=== PATIENT | female | born 1995 | race Two or more races ===

== ENCOUNTER 2024-08-07 04:46 | Inpatient (IN) | payer MEDICAID, SELFPAY ==
[2024-08-07] VITALS (15 sets, daily range): BP systolic 88–136; BP diastolic 63–83; PULSE 68–87; RESP 14–20; TEMP 36.7–37.1; O2SAT 96–100; BMI 26.9
[2024-08-07 05:15] LABS: ROM Kit Lot # 57845053; ROM Swab Mixed By: DELEN1; Rupture of Fetal Membranes Positive (Negative); Swb Mxed in Solvent 1 min? Yes
[2024-08-07 05:49] LABS: Basophils % (Auto) 0 % (0-2.5); Eosinophils # (Auto) 0.1 Thou/mm3 (0.0-0.5); Eosinophils % (Auto) 1 % (0-10); Hematocrit 35.4 % (36.0-46.0); Hemoglobin 12.3 g/dL (12.0-16.0); Immature Granulocytes % (Auto) 1 % (0-0); Immature Granulocytes Auto 0.09 Thou/mm3 (0.00-0.00); Lymphocytes # (Auto) 3.3 Thou/mm3 (1.0-4.8); Lymphocytes % (Auto) 34 % (10-50); Mean Corpuscular HGB Conc 34.7 g/dl (31.0-37.0); Mean Corpuscular Hemoglobin 30.8 pg (25.0-35.0); Mean Corpuscular Volume 89 fL (80-100); Monocytes # (Auto) 0.8 Thou/mm3 (0.0-0.8); Monocytes % (Auto) 9 % (0-12); Neutrophils # (Auto) 5.4 Thou/mm3 (1.8-7.7); Neutrophils % (Auto) 56 % (37-80); Nucleated Red Blood Cell % 0 /100 WBC (0); Platelet Count 205 Thou/mm3 (140-440); RDW Standard Deviation 42.6 fL (36.4-46.3); Red Blood Count 3.99 Miln/mm3 (4.00-5.20); White Blood Count 9.7 Thou/mm3 (3.6-11.0)
[2024-08-07] MEDS: ceFAZolin/D5W 2 GM IV 2 GM/100 ML BAG IV (06:05)
[2024-08-07] MEDS: FAMOTIDINE INJ 10 MG/ML VIAL 2 ML 20 MG IV (06:05)
[2024-08-07] MEDS: CITRIC ACID/SODIUM CITR 15 ML UDC (BICITRA) 30 ML PO (06:06)
--- NOTE | 2024-08-07 06:13 | PD.LDHP ---
Documentation for date of: 08/07/24 OB Labor/Induct. HPI History of Present Illness History of sections: Yes (X1) History of present illness: Dictated in Nuance [id number] History of Present Adequate Care: Yes Past Medical History Surgical History SURGICAL: Positive Section (X1) Meds Home Medications and Allergies Home Medications ?Medication ?Instructions ?Recorded ?Confirmed ?Type acetaminophen 500 mg capsule 1,000 mg PO Q6H PRN Pain 02/08/23 02/08/23 History Allergies Allergy/AdvReac Type Severity Reaction Status Date / Time No Known Allergies Allergy Unknown Verified 02/09/23 09:37 OB Exam Physical Exam Vital signs: Pulse BP 78 136/82 H 08/07/24 06:02 08/07/24 06:02 OB Results Labs 08/07/24 05:32 Labs: Short CBC 08/07/24 Range/Units 05:32 WBC 9.7 (3.6-11.0) Thou/mm3 Hgb 12.3 (12.0-16.0) g/dL Hct 35.4 L (36.0-46.0) % Plt Count 205 (140-440) Thou/mm3
[2024-08-07 06:30] LABS: Syphilis Nonreactive (Nonreactive)
--- NOTE | 2024-08-07 07:07 | ESHP_ITS ---
RE: JUAN CHEN : 1995 DATE OF ADMISSION: 08/07/2024 HISTORY OF PRESENT ILLNESS: This is a 29-year-old 2 para 1 with intrauterine at 36 weeks' gestation, previous delivery who elects repeat delivery who presented to labor and delivery complaining of contractions and leaking is noted to be lata every 1-2 minutes with amniosure positive. She denies any leaking or bleeding. She reports normal movements. Her GBS was negative. MEDICATIONS: multivitamin 1 tablet p.o. daily. PAST MEDICAL HISTORY: Endometriosis and pelvic adhesions. PAST SURGICAL HISTORY: delivery, laparoscopic bilateral ovarian cystectomy and lysis of adhesions in 10/2021, and diagnostic laparoscopy on 02/09/2023. SOCIAL HISTORY: She denies any alcohol, drug use, or smoking. She is . FAMILY HISTORY: Diabetes. REVIEW OF SYSTEMS: She denies any chest pain, palpitations, cough, fever, shortness of breath, or lower extremity pain. She denies any headache, change in vision or right upper quadrant pain. PHYSICAL EXAMINATION: VITAL SIGNS: Blood pressure is 136/82 mmHg, heart rate 78, respirations 18, and temperature 98.2. HEENT: Oropharynx and sclerae are clear. LUNGS: Clear to auscultation bilaterally. HEART: Regular rate and rhythm. ABDOMEN: Gravid, term size, old Pfannenstiel scar noted. PELVIC: Per RN is fingertip, long vertex. EXTREMITIES: Nontender. SKIN: No gross or lesion. NEUROLOGIC: No focal deficit. ASSESSMENT: Intrauterine at 36 weeks 5 days, previous delivery, labor, elect repeat delivery. PLAN: Repeat delivery. Informed consent was obtained. The patient was made aware of the risks, complications, alternatives, and benefits of the proposed procedure and she agrees. DT: 06:12:42 TT: 07:05:00 Ref: [id number] - TID: [id number] MTDD
--- NOTE | 2024-08-07 07:45 | PD.LDDS ---
DS: Providers Provider Date of admission: 08/07/24 06:51 Primary care physician: Jareth Knight MD Admitting Provider: Jareth Knight MD Attending Provider on Admission: Jareth Knight MD Consults: 08/07/24 07:25 Referral Routine Comment: Attending Provider on DC: Jareth Knight MD Discharging Provider: Jareth Knight MD DS: Diagnosis Problem List Completed Was Problem List Reviewed/Reconciled?: Yes Summary/Hosp Course Brief History: Dictated in [facility] [id number] Peripartum Data Procedures: Procedures Operation Date: 08/07/24 06:30 <No data on this case meets the specified criteria> Time Spent with Patient Time attestation: Total time spent providing and/or coordinating discharge services: Exam Vital Signs Pulse BP 78 136/82 H 08/07/24 06:02 08/07/24 06:02 Discharge Plan Plan Patient Disposition: HOME (Self Care) Patient condition on transfer: Stable Prescriptions/Referrals Prescriptions/Med Rec: New hydrocodone-acetaminophen 5-325 mg tablet 1 tab PO Q6H MDD 4 PRN (Reason: pain) Qty: 20 0RF No Action M- Plus 27 mg iron- 1 mg tablet 1 tab PO QDAY Patient Comments: TAKE 1 TABLET BY MOUTH EVERY DAY Referrals: Jareth Knight MD [Primary Care Provider] - Patient/Caregiver Discharge Instructions Discharge Activity: activity as tolerated Other Discharge Activity Instructions:: Follow up office 1 week. Education Materials: C Section Dc Print Language: Nigerien Stand Alone Forms: Bonita Award Info., Patient Portal Info Letter Planned Discharge Date 08/09/24
[2024-08-07] MEDS: OXYTOCIN in NS 20 units 20 UNIT/1,000 ML BAG 125 UNIT IV ×2 (07:50→14:24)
[2024-08-07] MEDS: KETOROLAC INJ 30 MG/ML VIAL IVP ×2 (10:29→17:19)
[2024-08-07 13:37] LABS: Basophils # (Auto) 0.1 Thou/mm3 (0.0-0.2); Basophils % (Auto) 0 % (0-2.5); Eosinophils % (Auto) 0 % (0-10); Hematocrit 27.8 % (36.0-46.0); Hemoglobin 9.7 g/dL (12.0-16.0); Immature Granulocytes % (Auto) 1 % (0-0); Lymphocytes # (Auto) 2.3 Thou/mm3 (1.0-4.8); Lymphocytes % (Auto) 15 % (10-50); Mean Corpuscular HGB Conc 34.9 g/dl (31.0-37.0); Mean Corpuscular Hemoglobin 31.8 pg (25.0-35.0); Mean Corpuscular Volume 91 fL (80-100); Monocytes # (Auto) 0.8 Thou/mm3 (0.0-0.8); Monocytes % (Auto) 5 % (0-12); Neutrophils # (Auto) 12.1 Thou/mm3 (1.8-7.7); Neutrophils % (Auto) 79 % (37-80); Nucleated Red Blood Cell % 0 /100 WBC (0); Platelet Count 164 Thou/mm3 (140-440); RDW Standard Deviation 43.5 fL (36.4-46.3); Red Blood Count 3.05 Miln/mm3 (4.00-5.20); White Blood Count 15.4 Thou/mm3 (3.6-11.0)
[2024-08-08 00:50] VITALS: BP 113/73; PULSE 86; RESP 17; TEMP 37.1; O2SAT 99
[2024-08-08] MEDS: IBUPROFEN TAB 400 MG TABLET 800 MG PO ×2 (00:55→16:11)
[2024-08-08 03:35] VITALS: BP 106/65; PULSE 71; RESP 16; TEMP 37.1; O2SAT 97
--- NOTE | 2024-08-08 07:28 | OBDSUM_ITS ---
Data ([facility]) Data Hx Section: Yes (X1) : 2 Para: 1 Term: 1 : 0 : 0 Delivery Data (Saunders) Labor Data ROM Date: 08/07/24 ROM Time: 04:30 Rupture Type: SROM Amniotic Fluid: Clear Delivery Data EDC: 08/30/24 EDC calculated by:: LMP/early US confirmation Labor Onset Stage 1 Date: 08/07/24 Labor Onset Stage 1 Time: 05:40 Labor Onset Stage 2 Date: 08/07/24 Labor Onset Stage 2 Time: 06:41 Delivery Date: 08/07/24 Delivery Time: 06:41 Gestational age (weeks): 36 Gestational age (days): 5 Placenta Delivery Date: 08/07/24 Placenta Delivery Time: 06:42 Delivered by: Jareth Knight Delivery nurse: Cierra Morales Other staff at delivery: Nursery Nurse Other staff at delivery: Historic Sites Registrar Other staff at delivery: Erendira Duff Other staff at delivery: Beverley Peoples Delivery Method Delivery: Delivery Type: Repeat Presentation: Vertex Position: OA Anesthesia Type Primary Anesthesia: Spinal Placenta Placenta Delivery: Manual Placenta Cultures Obtained: No Placenta Sent for Examination: No Cord Sample: Cord Blood Obtained EBL Estimated blood loss (ml): 600 Umbilical Cord Umbilical Vessels: 3 Additional Procedures Lysis of adhesions Complications Complications: None [place] Data (Saunders) [place] Data Gender: Male Infant Weight Grams: 2775 1 Minute Total: 8 5 Minute Total: 9
[2024-08-08] MEDS: HYDROcodone/APAP 5/325 TABLET 1 TAB PO (07:37)
[2024-08-08 08:00] VITALS: BP 102/64; PULSE 87; RESP 16; TEMP 37.2; O2SAT 97
--- NOTE | 2024-08-08 08:03 | ESPR_ITS ---
RE: JUAN CHEN : 1995 DATE OF SERVICE: 08/08/2024 SUBJECTIVE: Postoperative day #1, the patient denies any problem or complaint. She is voiding, ambulating, tolerating diet, passing flatus. She denies any excessive vaginal bleeding. She denies any dizziness or lightheadedness. She denies any chest pain, palpitations, shortness of breath, or lower extremity pain. OBJECTIVE: Vital Signs: Blood pressure 106/65, heart rate 71, respirations 16, temperature 98.8, pulse oximetry is 97% on room air. Lungs: Clear to auscultation bilaterally. Heart: Regular rate and rhythm. Abdomen: Dressing is dry and intact. Fundus is firm. Extremities: Nontender. LABORATORY DATA: Hemoglobin predelivery is 12.3, post delivery is 9.7. ASSESSMENT: Postop day #1 status post delivery and lysis of adhesions. PLAN: Remove dressing, discontinue IV, support, encourage ambulation, possible discharge home tomorrow. DT: 07:28:15 TT: 08:02:00 Ref: [id number] - TID: [id number]
[2024-08-08 17:04] VITALS: BP 107/70; PULSE 90; RESP 16; TEMP 37.1
[2024-08-08 20:49] VITALS: BP 119/74; PULSE 75; RESP 18; TEMP 36.9; O2SAT 98
[2024-08-08] MEDS: SIMETHICONE 80 MG CHEW PO (21:05)
[2024-08-08] MEDS: Milk Of Magnesia Susp 30 ML UDC PO (21:05)
[2024-08-09 00:17] VITALS: BP 106/65; PULSE 77; RESP 16; TEMP 36.9; O2SAT 96
[2024-08-09] MEDS: IBUPROFEN TAB 400 MG TABLET 800 MG PO ×2 (00:17→08:26)
--- NOTE | 2024-08-09 07:41 | ESPR_ITS ---
RE: JUAN CHEN : 1995 DATE OF SERVICE: 08/09/2024 Postop day number 2. The patient denies any permanent complaint. She would like something to help with the bowel movement. She is passing flatus. She is voiding without difficulty. She denies any dizziness or lightheadedness. She denies any chest pain, palpitations, shortness of breath or lower extremity pain. She denies any excessive vaginal bleeding or nausea or vomiting. She is tolerating a regular diet. OBJECTIVE: VITAL SIGNS: Blood pressure 106/65, heart rate 77, respirations 16, temperature is 98.4, pulse ox is 96% on room air. LUNGS: Clear to auscultation bilaterally. HEART: Regular rate and rhythm. ABDOMEN: Incision clear and intact. Fundus is firm. EXTREMITIES: Nontender. ASSESSMENT: Postoperative day number 2, status post delivery with lysis of adhesions. Anemia, but hemodynamically stable. PLAN: Discharge home. Follow up in the office in 1 week. Continue vitamin daily. Dulcolax suppository for bowel movement prior to discharge. DT: 06:53:33 TT: 07:39:00 Ref: [id number] - TID: [id number]
[2024-08-09 08:00] VITALS: BP 122/73; PULSE 94; RESP 16; TEMP 36.7; O2SAT 98
[2024-08-09] MEDS: bisacodyL 10 MG SUPP PR (08:30)
--- NOTE | 2024-08-09 08:34 | ESOP_ITS ---
RE: JUAN CHEN : 1995 DATE OF OPERATION: 08/07/2024 PREOPERATIVE DIAGNOSES: 1. Intrauterine at 36 weeks and 5 days. 2. Previous delivery. 3. Early labor. 4. Elects repeat delivery. 5. Spontaneous rupture of membranes. POSTOPERATIVE DIAGNOSES: 1. Intrauterine at 36 weeks and 5 days. 2. Previous delivery. 3. Early labor. 4. Elects repeat delivery. 5. Spontaneous rupture of membranes. 6. Endometriosis. PROCEDURES PERFORMED: Repeat low transverse section via Pfannenstiel skin incision and lysis of adhesions. SURGEON: Jareth Knight DO LOGGING RAFTER LABORER: KAREEN Rey ANESTHESIA: Spinal. ANESTHESIOLOGIST: Dionisio Orellana CRNA ESTIMATED BLOOD LOSS: 600 mL. COMPLICATIONS: None. COUNTS: Correct. PATHOLOGY: None. FINDINGS: A live male , cephalic presentation. Clear amniotic fluid. , see RN notes. Cord pH not done. Placenta removed completely intact. Uterus firm with Pitocin. Superficial endometriotic implants on the posterior uterosacral ligaments, adhesions of the right adnexa to the right posterior uterosacral ligament, endometriotic implants on the serosal surface of the rectosigmoid colon. There were no endometriomas or endometriotic masses or cysts. DESCRIPTION OF PROCEDURE: After proper informed consent was obtained and patient was made aware of the risks, complications, alternatives, and benefits of the proposed procedure, she was taken to the operating room where she underwent induction of spinal anesthesia. She was placed in the dorsal supine position with leftward tilt. She was prepped and draped in the usual sterile fashion. A timeout was performed. A Pfannenstiel skin incision was made with scalpel and carried through to the underlying layer of fascia with the Bovie. The fascia was nicked in the midline. The incision extended bilaterally with the Bovie. The inferior aspect of the fascia was grasped with Mat clamps and elevated. The underlying rectus muscle was dissected off with the Bovie. The rectus muscles were in the midline. The peritoneum identified between 2 Garza clamps and the peritoneum was entered sharply with Metzenbaum scissors. The incision was extended superiorly and inferiorly with good visualization of the bladder. The bladder blade was inserted. The vesicouterine peritoneum was incised transversely and bladder flap created digitally. The bladder blade was reinserted. The lower uterine segment was incised in transverse fashion with scalpel. The incision was extended bilaterally digitally. The infant's head delivered. Mouth and nose suctioned with bulb suction. Shoulder and body delivered atraumatically. The cord was clamped and cut. The infant was handed off to awaiting pediatric staff. Cord blood and gases were sent. The placenta was then removed manually. The uterus was exteriorized and cleared of all clots and debris. The uterine incision was repaired with #1-0 chromic catgut suture in running locking fashion. A second layer of same suture was used imbricating the first layer and obtained excellent hemostasis. The vesicouterine peritoneum was closed with 2-0 chromic catgut suture in running fashion. Attention was then turned to the posterior aspect of the uterus where the adhesions were lysed using Enseal X1 large jaw. Interceed was placed on the posterior uterosacral ligaments. The uterus was returned to the abdomen. The gutters were cleared of all clots and debris. The peritoneum was closed with 0 chromic catgut suture in running fashion. The muscle was closed with 0 chromic catgut suture in running fashion. The fascia was closed with 0 Vicryl beginning at each angle and ending at center in running fashion. Subcutaneous tissue was irrigated with normal saline solution and found to be hemostatic, closed with 2-0 chromic catgut suture in running fashion. The skin was closed with 4-0 Monocryl and Dermabond Prineo dressing was applied. A sterile pressure dressing was applied. She tolerated the procedure well. Counts were correct. I discussed with patient the nature of her condition, intraoperative findings and expectation for recovery. All questions answered. DT: 07:43:48 TT: 15:49:00 Ref: [id number] - TID: [id number]
== END 2024-08-09 12:30 | disposition home or self-care (01) | DRG 540 ==
LOC: S4SX 05:54 → S4NX 06:57 → S4SX 08-08 05:48 → S4NX 08-08 05:48 → S4SX 08-14 13:25 → S4NX 08-14 13:25
PROVIDERS: Admitting Provider Specialist; PCP Specialist; Visit Provider Specialist
PROC: 10D00Z1 Extraction of Products of Conception, Low, Open Approach (ICD-10-PCS; CPT 59514; principal; 2024-08-07 06:30)
DX: O60.14X0 Preterm labor third trimester with preterm delivery third trimester, not applicable or unspecified (principal); O34.211 Maternal care for low transverse scar from previous cesarean delivery; O34.83 Maternal care for other abnormalities of pelvic organs, third trimester; N80.00 Endometriosis of the uterus, unspecified; N80.5 Endometriosis of intestine; Z37.0 Single live birth; Z3A.36 36 weeks gestation of pregnancy
CPT/HCPCS: 36415; 59025; 59409; 59899; 84112; 85025; 86780; 86850; 86900; 86901; 94762; A4649; G0378; J0689; J1885; J2274; J2371; J2590; J3490; A9270; J0690; J2270

== ENCOUNTER 2025-08-05 12:21 | Emergency (ER) | payer MEDICAID, SELFPAY ==
[2025-08-05 12:34] VITALS: BP 102/65; PULSE 68; RESP 16; TEMP 36.6; O2SAT 99; BMI 23.3
--- NOTE | 2025-08-05 12:57 | XR_ITS ---
Examination: CT abdomen and pelvis without contrast. Coronal 3-D reconstructions. Sagittal 2-D reconstructions. Date and time of exam: August 05, 2025, 1450 hours INDICATIONS: Left flank pain left lower back pain beginning 1 month ago CTDI: vol (mGy): 6.76 DLP: (mGycm): 339 Technique: Axial images of the abdomen have been obtained, 3 mm slice thickness Intravenous contrast material has not been administered. Low dose protocols were performed. One or more of the following dose reduction techniques were used; automated exposure control, adjustment of the mA and/or KV according to patient size, use of iterative reconstruction technique. Findings: No focal liver or splenic lesions Contracted gallbladder No pancreatic or adrenal mass. No renal or ureteral calculi, no hydronephrosis Aorta normal size No pericecal inflammatory change, normal appendix No bowel obstruction or diverticulitis Hypodense cystlike area in the pelvis, axial image 168, measuring 5.3 cm Urinary bladder intact Moderate disc narrowing L5-S1 IMPRESSION: No renal or ureteral calculi, no hydronephrosis Normal appendix 5.3 cm hypodense area in the right pelvis, recommend pelvic sonography follow-up
--- NOTE | 2025-08-05 13:11 | EDNOTE_ITS ---
ED Back Injury Pain RME/HPI General Chief Complaint: Back Pain/Injury Stated Complaint: L) LOWER BACK PAIN, INTERMITTENT, X 1 MO Time Seen by Provider: 08/05/25 12:26 Source: patient Arrival date/time: 08/05/25 12:21 30-year-old female with no known medical history presents to the emergency room with a chief complaint of left-sided flank pain x 1 month Mode of arrival: ambulatory Limitations: no limitations Related Data Home Medications ?Medication ?Instructions ?Recorded ?Confirmed vitamins with calcium 1 tab PO QDAY 08/07/24 08/07/24 no.72-iron 27 mg-folic acid 1 mg tablet (M-Vania Plus) Previous Rx's ?Medication ?Instructions ?Recorded hydrocodone 5 mg-acetaminophen 325 1 tab PO Q6H PRN pa in #20 tabs 08/07/24 mg tablet ibuprofen 600 mg tablet 600 mg PO Q6H PRN pain #30 t abs 08/09/24 Allergies Allergy/AdvReac Type Severity Reaction Status Date / Time No Known Allergies Allergy Unknown Verified 08/07/24 07:13 Review of Systems Review of Systems Systems Reviewed: All systems reviewed, normal except as documented Constitutional Constitutional: Reports system reviewed and no additional complaints, except as documented, Denies fatigue, Denies fever(s), Denies headache(s) and Denies weakness Eyes Eyes: Reports system reviewed and no additional complaints, except as documented, Denies blurry vision and Denies change in vision ENT Ears, Nose, Mouth, and Throat: Reports system reviewed and no additional complaints, except as documented, Denies otalgia, Denies headache(s), Denies nasal congestion, Denies throat swelling and Denies vertigo Cardiovascular Cardiovascular: Reports system reviewed and no additional complaints, except as documented, Denies chest pain, Denies dyspnea and Denies dyspnea on exertion Respiratory Respiratory: Reports system reviewed and no additional complaints, except as documented, Denies chest congestion, Denies cough, Denies dyspnea, Denies dyspnea on exertion and Denies wheezing Gastrointestinal Gastrointestinal: Reports system reviewed and no additional complaints, except as documented, Denies abdominal pain, Denies cramping, Denies nausea and Denies vomiting Genitourinary Genitourinary: Reports system reviewed and no additional complaints, except as documented Musculoskeletal Musculoskeletal: Reports system reviewed and no additional complaints, except as documented and Reports back pain Integumentary/Breasts Skin/Breast: Reports system reviewed and no additional complaints, except as documented and Denies wounds Neurologic Neurologic: Reports system reviewed and no additional complaints, except as documented, Denies confusion, Denies headache(s), Denies lack of coordination, Denies vertigo and Denies weakness Psychiatric Psychiatric: Reports system reviewed and no additional complaints, except as documented, Denies anxiety, Denies confusion, Denies depression, Denies paranoia, Denies suicidal ideation and Denies tactile hallucinations Endocrine Endocrine: Reports system reviewed and no additional complaints, except as documented and Denies fatigue Hematologic/Lymphatic Hematologic/Lymphatic: Reports system reviewed and no additional complaints, except as documented and Denies lymphadenopathy Allergic/Immunologic Allergic/Immunologic: Reports system reviewed and no additional complaints, except as documented, Denies throat swelling, Denies urticaria and Denies wheezing Past Medical History Past Medical History NEUROLOGIC: Negative Neurological Disorders or Seizures CARDIAC: Negative Cardiac Disorders or Congestive Heart Failure RESPIRATORY: Negative Chronic Obstructive Pulmonary Disease (COPD), Asthma, Tuberculosis, Pulmonary Embolism or Sleep Apnea GASTROINTESTINAL: Negative Gastrointestinal Disorders or Hepatitis GENITOURINARY: Negative Genitourinary Disorders or Renal Disease REPRODUCTIVE: Positive Pelvic Inflammatory Disease (OVARIAN CYSTS) and Previous Pregnancies (X1) MUSCULOSKELETAL: Negative Musculoskeletal Disorders ENDOCRINE: Negative Endocrine Disorders, Diabetes Mellitus Type 1 or Diabetes Mellitus Type 2 HEMATOLOGIC: Negative Blood Disorders, Sickle Cell Disease or Clotting Problems OTHER HISTORY: Positive Chicken Pox (self); Negative Hospitalization, Autoimmune Disease, Shingles, Falls, Blood Transfusions, Blood Transfusion Reaction, Anesthesia Reactions, Radiation Therapy, MRSA, Measles, Mumps or Cancer Family History FAMILY HISTORY: Positive Family Respiratory Disorders (SISTER (ASTHMA)) and Family Cardiac Disorders (FATHER (HTN)); Negative Family Psychiatric Problems, Family Gastrointestinal Problems, Family Cancer, Family Surgery or Family Anesthesia Reaction Surgical History SURGICAL: Positive Section (X1); Negative Endocrine Surgery or Abdominal Surgery Social History SMOKING STATUS: Never smoker SECOND HAND EXPOSURE: No ED Exam General Limitations: Present no limitations General appearance: Present alert and in no apparent distress Head Head exam: Present atraumatic Eye Eye exam: Present normal appearance, PERRL and EOMI ENT ENT exam: Present normal exam, normal oropharynx and mucous membranes moist Neck Neck exam: Present normal inspection, full ROM and trachea midline Chest Chest inspection: Present normal inspection and symmetric chest wall rise Respiratory Respiratory exam: Present normal lung sounds bilaterally Cardiovascular Cardiovascular exam: Present regular rate, normal rhythm and normal heart sounds Abdominal Exam Abdominal exam: Present soft and normal bowel sounds Extremities Exam Extremities exam: Present normal inspection and full ROM Back Exam Back exam: Present normal inspection, full ROM and CVA tenderness (L) Neurological Exam Neurological exam: Present alert, oriented X3 and CN II-XII intact Psychiatric Psychiatric exam: Present normal affect and normal mood Skin Skin exam: Present warm, dry, intact and normal color Course Quality Measures none Orders Category Date Time Status CT abdomen pelvis wo con Stat Exams 08/05/25 12:57 Completed CBC Stat Lab 08/05/25 13:04 Completed CMP [Comprehensive Metabolic Panel] Stat Lab 08/05/25 13:04 Completed HCG Qualitative,Urine Stat Lab 08/05/25 13:15 Completed Lipase Stat Lab 08/05/25 13:04 Completed UA [Urinalysis] Stat Lab 08/05/25 13:15 Completed Urine Culture Stat Lab 08/05/25 13:15 Received Vital Signs Vital signs: Vital Signs Temperature 97.8 F 08/05/25 12:34 Pulse Rate 68 08/05/25 12:34 Respiratory Rate 16 08/05/25 12:34 Blood Pressure 102/65 08/05/25 12:34 Pulse Oximetry (%) 99 08/05/25 12:34 Oxygen Delivery Method Room Air 08/05/25 12:34 Back Pain / Injury MDM Narrative MDM Narrative:: 30-year-old female with no known medical history presents to the emergency room with a chief complaint of left-sided flank pain x 1 month Patient is hemodynamically stable and in no apparent distress Physical examination shows left CVA tenderness with palpation. The patient is afebrile nontachycardic nontachypneic no nausea no vomiting. CT abdomen and pelvis was completed and was negative for any acute findings. There was a small area of hypodense in the right pelvis the patient was educated that her pelvic sonography follow-up with her primary care provider is indicated. Urinalysis was negative CBC CMP were within normal limits Patient was discharged and educated to follow-up with primary care provider in the next 24 to 48 hours and return to the emergency room for any evidence of worsening signs or symptoms Patient data External records reviewed:: [facility] previous records Clinical information provided by:: patient Social determinants that could affect healthcare access:: none Patient has the following chronic illnesses:: No chronic illness How is presenting disease/condition affected by chronic disease/condition?: no chronic disease Evaluation data The following diagnostics were reviewed and interpreted by me:: lab results and radiology exam(s) Lab and/or radiology exams considered but not ordered:: Labs and radiology exams considered and ordered Interpretation Summary: CT abdomen and pelvis-Findings: No focal liver or splenic lesions Contracted gallbladder No pancreatic or adrenal mass. No renal or ureteral calculi, no hydronephrosis Aorta normal size No pericecal inflammatory change, normal appendix No bowel obstruction or diverticulitis Hypodense cystlike area in the pelvis, axial image 168, measuring 5.3 cm Urinary bladder intact Moderate disc narrowing L5-S1 IMPRESSION: No renal or ureteral calculi, no hydronephrosis Normal appendix 5.3 cm hypodense area in the right pelvis, recommend pelvic sonography follow-up Medications / Prescriptions Medications or Prescriptions considered but not ordered:: No medication given Medication administrations:: No medication given Consultations Consultation(s) initiated? (list below): No Diagnosis Differential diagnosis back pain/injury: strain of lumbar region, renal colic and other (Ureteral calculi/acute flank pain) Most likely diagnosis given after review of the tests above:: Acute flank pain Admission Indicated Admission indicated?: not indicated Admission Request Was there a request for admission?: No Disposition Plan Disposition Plan: Discharge Discharge Attestation Discharge Attestation: The patient and all family members were given an opportunity to ask questions and understood the discharge instructions. Discharge instructions specifically effects, indications for sooner follow up or return to the emergency department, and the expected course of current diagnosis. Patient condition: Stable Discharge Plan Plan Patient Disposition: HOME (Self Care) Discharge Disposition comment: Stable Prescriptions/Referrals Prescriptions/Med Rec: No Action M-Vania Plus 27 mg iron- 1 mg tablet 1 tab PO QDAY Patient Comments: TAKE 1 TABLET BY MOUTH EVERY DAY hydrocodone-acetaminophen 5-325 mg tablet 1 tab PO Q6H MDD 4 PRN (Reason: pain) Qty: 20 0RF ibuprofen 600 mg tablet 600 mg PO Q6H PRN (Reason: pain) Qty: 30 0RF Referrals: Mt Mcclelland MD [Primary Care Provider, Family Practice] - In 1 week Problem List Clinical Impression: Acute flank pain Patient/Caregiver Discharge Instructions Education Materials: ED Pain, Acute, Uncertain Cause Additional Instructions: Por favor, consulte con grimaldo m?dico de cabecera en las pr?ximas 24 a 48 horas. La tomograf?a computarizada de grimaldo abdomen y pelvis no mostr? hallazgos agudos. Se encontr? derick fern?a ?hebert en la pelvis donde podr?a jodee algunos quistes. El radi?logo recomienda derick ecograf?a de seguimiento. Consulte con grimaldo m?dico de cabecera para un manejo posterior. Kayleigh an?lisis de sharifa y orina se encuentran dentro de los l?mites normales. Si presenta alg?n signo o s?ntoma que empeore, regrese a la jackson de emergencias de inmediato. Print Language: Mozambican Stand Alone Forms: Bonita Award Info., Work/School Release, Patient Portal Info Letter
[2025-08-05 13:24] LABS: Basophils # (Auto) 0.1 Thou/mm3 (0.0-0.2); Basophils % (Auto) 1 % (0-2.5); Eosinophils # (Auto) 0.2 Thou/mm3 (0.0-0.5); Eosinophils % (Auto) 2 % (0-10); Hematocrit 36.7 % (36.0-46.0); Hemoglobin 11.9 g/dL (12.0-16.0); Immature Granulocytes Auto 0.02 Thou/mm3 (0.00-0.00); Lymphocytes # (Auto) 1.6 Thou/mm3 (1.0-4.8); Lymphocytes % (Auto) 18 % (10-50); Mean Corpuscular HGB Conc 32.4 g/dl (31.0-37.0); Mean Corpuscular Hemoglobin 29.8 pg (25.0-35.0); Mean Corpuscular Volume 92 fL (80-100); Monocytes # (Auto) 0.7 Thou/mm3 (0.0-0.8); Monocytes % (Auto) 8 % (0-12); Neutrophils # (Auto) 6.4 Thou/mm3 (1.8-7.7); Neutrophils % (Auto) 72 % (37-80); Nucleated Red Blood Cell # 0.00 Thou/mm3 (0.00-0.00); Nucleated Red Blood Cell % 0 /100 WBC (0); Platelet Count 255 Thou/mm3 (140-440); RDW Standard Deviation 45.4 fL (36.4-46.3); Red Blood Count 3.99 Miln/mm3 (4.00-5.20); White Blood Count 8.9 Thou/mm3 (3.6-11.0)
[2025-08-05 13:44] LABS: Collection Type, Urine Clean Catch
[2025-08-05 13:57] LABS: Alanine Aminotransferase 10 U/L (10-49); Albumin, Serum 4.5 gm/dL (3.5-5.0); Albumin/Globulin Ratio 1.6 (1.2-2.2); Alkaline Phosphatase 73 U/L (46-116); Anion Gap 7 (7-16); Aspartate Amino Transferase 15 U/L (0-34); BUN/Creatinine Ratio 8 Ratio (12-20); Bilirubin,Total 0.4 mg/dL (0.3-1.2); Blood Urea Nitrogen 11 mg/dL (9-23); Calcium 9.1 mg/dL (8.3-10.6); Calcium (Corrected) 9.1 mg/dL (8.5-10.1); Carbon Dioxide 27.8 mMol/L (20.0-31.0); Chloride 110 mMol/L (98-107); Creatinine (Component) 1.3 mg/dL (0.6-1.3); Estimated Creatinine Clearance 56.9 mL/min (>60); Globulin 2.8 gm/dL (2.3-3.5); Glucose 77 mg/dL (74-106); Lipase 100 U/L (12-53); Osmolality,Calculated 287 (275-295); Potassium 4.9 mMol/L (3.4-5.1); Sodium 145 mMol/L (136-145); Total Protein 7.3 gm/dL (5.7-8.2); eGFR 57 See Note
[2025-08-05 14:19] LABS: HCG Qualitative,Urine Negative
[2025-08-05 14:20] LABS: Bilirubin,Urine Negative (Negative); Blood,Urine Negative (Negative); Clarity,Urine Clear (Clear/Hazy); Color,Urine Lt-Yellow (Lt Yel-Yel); Glucose, Urine Negative (Negative); Ketones,Urine Negative (Negative); Leukocyte Esterase,Urine Negative (Negative); Nitrite,Urine Negative (Negative); PH,Urine 7.5 (5.0-7.0); Protein,Urine Negative (Neg - Trace); RBC,Urine 3 /hpf (0-3); Specific Gravity,Urine 1.024 (1.001-1.035); Squamous Epithelial Cell,Urine 4 /hpf (0-5); Urobilinogen,Urine Negative mg/dL (0.0-1.0); WBC,Urine 1 /hpf (0-5)
== END 2025-08-05 17:19 | disposition home or self-care (01) ==
PROVIDERS: Nurse Practitioner Family; Emergency Provider Emergency Medicine; PCP Family Medicine
DX: R10.A2 Flank pain, left side (principal)
CPT/HCPCS: 36415; 74176; 80053; 81001; 81025; 83690; 85025; 87086; 99283